=== PATIENT | female | born 1965 | race Caucasian/White ===

== ENCOUNTER 2016-11-15 17:09 | Emergency (ER) | payer MEDICAID ==
[~2016-11-15] VITALS: Ht 180.3 cm; Wt 72.0 kg
[2016-11-15 17:54] VITALS: Ht 180.3 cm; Wt 72.0 kg
[2016-11-15] MEDS ORDERED: IBUP-1542 PO (19:14)
--- NOTE | 2016-11-15 19:17 | ERD ---
ER Documentation Chief Complaint Date/Time DATE: 11/15/16 TIME: 19:16 Chief Complaint left breast pain started this morning HPI Patient is a 51-year-old female with no medical problems who presents with left- sided breast pain. The pain comes and goes with her menstruation over the past few weeks. She has had no fevers. She has had no treatment as of yet. The pain is worse with palpation. She did have a recent mammogram which did not show any sign of acute cancer. ROS All systems reviewed and are negative except as per history of present illness. Medications Home Meds Active Scripts Ibuprofen* (Motrin*) 600 Mg Tab, 600 MG PO Q6H Y for PAIN AND OR ELEVATED TEMP, #30 TAB Prov:KEN FUENTES MD 11/15/16 PMhx/Soc Medical and Surgical Hx: pt denies Medical Hx, pt denies Surgical Hx History of Surgery: No Hx Neurological Disorder: No Hx Respiratory Disorders: No Hx Cardiac Disorders: No Hx Psychiatric Problems: No Hx Alcohol Use: No Hx Substance Use: No Hx Tobacco Use: No Smoking Status: Never smoker FmHx Family History: No diabetes Physical Exam Vitals Vital Signs Date Time Temp Pulse Resp B/P Pulse Ox O2 Delivery O2 Flow Rate FiO2 11/15/16 17:54 98.3 77 18 111/69 99 Physical Exam Const: No acute distress Head: Atraumatic Eyes: Normal Conjunctiva ENT: Normal External Ears, Nose and Mouth. Neck: Full range of motion..~ No meningismus. Resp: Clear to auscultation bilaterally Cardio: Regular rate and rhythm, no murmurs Abd: Soft, non tender, non distended. Normal bowel sounds Skin: No signs of cellulitis of the left breast, the patient does have fibrocystic changes with palpation Back: No midline or flank tenderness Ext: No cyanosis, or edema Neur: Awake and alert Psych: Normal Mood and Affect Results 24 hrs Current Medications Medications (Trade) Dose Ordered Sig/Arash Route PRN Reason Start Time Stop Time Status Last Admin Dose Admin Ibuprofen (Motrin) 800 mg ONCE ONCE PO 11/15/16 19:30 11/15/16 19:31 DC 11/15/16 19:21 Procedures/MDM EKG read by me: Rate/Rhythm: Regular rate and rhythm at a rate of 83 Intervals: Normal Impression: No evidence of ischemia or arrhythmia Patient is a 51-year-old female who presents with left-sided breast pain. I believe her symptoms are likely fibrocystic changes. She will be given a prescription for ibuprofen for pain. However she does need close follow-up with a primary doctor for repeat breast exam as well as potentially another mammogram. There is a potential for possible cancer although I think this is less likely at this time. I see no signs of cellulitis or mastitis. There is no abscess formation. The patient will be discharged and can follow up with her primary doctor within 24-48 hours. Departure Diagnosis: Primary Impression: Breast pain Condition: Fair Patient Instructions: Breast Self-Exam (BSE) [facility] Usted se clark hecho un examen mdico de control que le indica que no est en jose condicin que requiera tratamiento urgente en el Departamento de Emergencia. Un estudio ms profundo y el tratamiento de sneed condicin pueden esperar sin ningn riesgo hasta que usted sea atendida/o en el consultorio de sneed mdico o jose cl kirstie. Es responsabilidad suya arreglar jose taurus para el seguimiento del marsha. MANEJO DE CONDICIONES NO URGENTES EN EL FUTURO 1) Si usted tiene un mdico de atencin primaria: Usted debera llamar a sneed mdico de atencin primaria antes de venir al departamento de emergencia. Despus de las horas de consultorio, sneed doctor o sneed asociado/a est disponible por telfono. El mdico o enfermero de marlene en el servicio telefnico puede asesorarle por rebecca medio para atender el problema, o marsha contrario se puede programar jose taurus. 2) Si usted no tiene un mdico de atencin primaria: Llame al mdico o clnica de referencia que aparece abajo shaila las horas de consultorio para hacer jose taurus para que le vean. CLINICAS: [facility] [phone] [id number] [facility] [phone] [facility] [phone] [place] [id number] [phone] [place] [address] [phone] [facility]. [phone] [address] Additional Instructions: Llame al doctor MAANA y marleni jose TAURUS PARA DENTRO DE 1-2 YUNG.Dgale a la secretaria que nosotros le instruimos hacer esta taurus.Avise o llame si sneed condicin se empeora antes de la taurus. Regresa aqui si peor o no mejor. KEN FUENTES MD Nov 15, 2016 19:16
[2016-11-15] MEDS ORDERED: IBUPROFEN 800 MG TAB PO ONE (19:30)
== END 2016-11-15 20:10 | disposition home or self-care (01) ==
LOC: FTE 17:09
DX: N64.4 Mastodynia (principal)
CPT/HCPCS: Z7502; Z7610

== ENCOUNTER 2019-02-25 10:25 | Emergency (ER) | payer MEDICAID ==
[~2019-02-25] VITALS: Ht 154.9 cm; Wt 76.1 kg
[~2019-02-25 10:25] MED LIST: IBUP-1542 PO
[2019-02-25 10:28] VITALS: BP 135/84; PULSE 83; RESP 20; Ht 154.9 cm; Wt 76.1 kg
[2019-02-25] MEDS ORDERED: PSEU-79 PO (11:40)
--- NOTE | 2019-02-25 14:12 | ERD ---
ER Documentation Chief Complaint Chief Complaint bilateral ear discomfort, feels dizzy; nausea HPI 53-year-old female presents with bilateral ear fullness and dizziness. Patient is taking meclizine with no alleviation of symptoms. She reports a mild headache. No vomiting. Denies any recent colds or fevers. Denies any visual changes. Denies chest pain or shortness of breath. Vertical. NKDA. Surgical history . Social history denies ROS All systems reviewed and are negative except as per history of present illness. Medications Home Meds Active Scripts Pseudoephedrine Hcl* (Suphedrin*) 30 Mg Tablet, 30 MG PO Q6 PRN for CONGESTION, #30 TAB Prov:SAHARA PEREZ PA-C 02/25/19 Ibuprofen* (Motrin*) 600 Mg Tab, 600 MG PO Q6H PRN for PAIN AND OR ELEVATED TEMP, #30 TAB Prov:KEN FUENTES MD 11/15/16 Allergies Allergies: Coded Allergies: No Known Allergy (Unverified , 02/25/19) PMhx/Soc Medical and Surgical Hx: pt denies Medical Hx, pt denies Surgical Hx History of Surgery: No Hx Neurological Disorder: No Hx Respiratory Disorders: No Hx Cardiac Disorders: No Hx Psychiatric Problems: No Hx Alcohol Use: No Hx Substance Use: No Hx Tobacco Use: No Smoking Status: Never smoker FmHx Family History: No diabetes, No coronary disease, No other Physical Exam Vitals Vital Signs Date Temp Pulse Resp B/P (MAP) Pulse Ox O2 O2 Flow FiO2 Time Delivery Rate 02/25/19 97.7 83 20 135/84 96 10:28 (101) Physical Exam GENERAL: The patient is well-appearing, well-nourished, in no acute distress HEENT: Atraumatic. Conjunctivae are pink. Pupils equal, round, and reactive to light. There is no scleral icterus. Tympanic membranes clear bilaterally. Oropharynx clear. CHEST: Clear to auscultation bilaterally. There are no rales, wheezes or rhonchi. HEART: Regular rate and rhythm. No murmurs, clicks, rubs or gallops. ABDOMEN:Soft, nontender and nondistended. Good bowel sounds. No rebound or guarding. No gross peritonitis. No gross organomegaly or masses. No Antonio sign or McBurney point tenderness. NEUROLOGIC: Alert and oriented. Cranial nerves II through XII intact. Motor strength in all 4 extremities with 5 out of 5 strength. Sensation grossly intact. Normal speech and gait. SKIN: There is no apparent rash or petechiae. The skin is warm and dry. Results 24 hrs Laboratory Tests Test 02/25/19 11:06 Bedside Urine pH (LAB) 7.0 Bedside Urine Protein (LAB) Negative Bedside Urine Glucose (UA) Negative Bedside Urine Ketones (LAB) Negative Bedside Urine Blood Negative Bedside Urine Nitrite (LAB) Negative Bedside Urine Leukocyte Esterase (L Trace POC Beta HCG, Qualitative NEGATIVE Procedures/MDM DIAGNOSTIC IMAGING REPORT Patient: AUGUSTUS ARNETT : 1965 Age: 53 Sex: F MR #: [id number] DOS: 02/25/19 1049 Ordering MD: NORMA PEREZ PA-C Location: [facility] Room/Bed: PROCEDURE: CT head CLINICAL INDICATION: Vertigo and dizziness TECHNIQUE: Contiguous 2.5 mm axial images were obtained from the vertex to the skull base. No intravenous contrast was administered. The calculated dose length product (DLP) = 634.23 mGy-cm. The CTDlvol = 39.20 mGy. One or more of the following dose reduction techniques were used: Automated exposure control, adjustment of the mA and or KV according to patient size, or use of iterative reconstruction technique. DICOM images are available. COMPARISON: 07/27/2008 FINDINGS: There is no evidence of acute intracranial hemorrhage or acute territorial infarct. No mass or mass effect is seen on this noncontrast study. The ventricles and cisterns are normal in size and configuration. The johnson-white matter differentiation is within normal limits. The visualized paranasal sinuses are normally aerated. The bony calvarium is unremarkable IMPRESSION: Unremarkable unenhanced CT of the brain No interval change MDM: 53-year-old female presenting with ear fullness. Patient will be discharged with supportive medications. Neuro exam is within normal limits. Patient's ear exam is within normal limits with no findings consistent with cerumen impaction. Patient is discharged with strict ER precautions and told to follow-up with primary care. All questions answered at discharge Departure Diagnosis: Primary Impression: Dizziness Condition: Stable Patient Instructions: Dizziness, Unk Cause Referrals: [facility] YOU HAVE RECEIVED A MEDICAL SCREENING EXAM AND THE RESULTS INDICATE THAT YOU DO NOT HAVE A CONDITION THAT REQUIRES URGENT TREATMENT IN THE EMERGENCY DEPARTMENT. FURTHER EVALUATION AND TREATMENT OF YOUR CONDITION CAN WAIT UNTIL YOU ARE SEEN IN YOUR DOCTORS OFFICE WITHIN THE NEXT 1-2 DAYS. IT IS YOUR RESPONSIBILITY TO MAKE AN APPOINTMENT FOR FOLOW-UP CARE. IF YOU HAVE A PRIMARY DOCTOR --you should call your primary doctor and schedule an appointment IF YOU DO NOT HAVE A PRIMARY DOCTOR YOU CAN CALL OUR PHYSICIAN REFERRAL HOTLINE AT IF YOU CAN NOT AFFORD TO SEE A PHYSICIAN YOU CAN CHOSE FROM THE FOLLOWING [facility] [address] [facility] [address] [facility] [facility] [address] [facility] [address] [facility] [facility] [address] [facility]. [facility]. [address] Additional Instructions: FOLLOW UP WITH YOUR PRIMARY CARE PHYSICIAN TOMORROW.Return to this facility if you are not improving as expected. SAHARA PEREZ PA-C Feb 25, 2019 14:12
== END 2019-02-25 11:47 | disposition home or self-care (01) ==
LOC: FTE 10:25
DX: R42 Dizziness and giddiness (principal)
CPT/HCPCS: 70450; 81003; 81025; Z7502